=== PATIENT | female | born 1950 | race Asian ===

== ENCOUNTER 2019-11-09 10:34 | Outpatient (CLI) | payer MEDICARE, SELFPAY ==
--- NOTE | ~2019-11-09 | MM_ITS ---
EXAMINATION: MM screening [facility] BI w anny HISTORY: Screening mammogram, family history of breast cancer in her sister. TECHNIQUE: Craniocaudal and mediolateral oblique 3-D tomosynthesis images were obtained and synthetic 2-D images were generated. CAD analysis was submitted and interpreted. COMPARISON: 09/03/2018, 05/20/2017, 04/14/2016, 04/01/2016 BREAST PARENCHYMAL COMPOSITION: There are scattered areas of fibroglandular density. FINDINGS: Again noted are stable bilateral breast masses, considered benign given the lack of interva l change. There is no evidence of suspicious mass, calcification, or architectural distortion to sugg est malignancy in either breast. There has been no suspicious interval change. IMPRESSION: 1. No mammographic evidence of malignancy. 2. Recommend routine screening mammography in one year. BI-RADS Category 2: Benign finding(s). Reviewed, dictated and finalized at location A. NG END TRIMMER
== END 2019-11-09 10:35 | disposition home or self-care (01) ==
LOC: ANHIMG 10:38
PROVIDERS: PCP Family Medicine; Visit Provider Family Medicine
DX: Z12.31 Encounter for screening mammogram for malignant neoplasm of breast (principal)
CPT/HCPCS: 77063; 77067

== ENCOUNTER 2021-03-28 13:59 | Outpatient (CLI) | payer MEDICARE, SELFPAY ==
--- NOTE | ~2021-03-28 | DEXA_ITS ---
Bone Density Report Name: Margi Mason Age: 70 Sex: Female Ethnicity: White Date of : 1950 Indication: postmenopausal; parental hip fracture; height loss; Referring Provider: Ramila Don Study: Bone densitometry was performed. Exam Date: March 28, 2021 Accession number: [id number] Bone Density: Region BMD T-score Z-score Classification AP Spine (L1, L2) 1.160 1.6 3.7 Normal Femoral Neck (Left) 0.802 -0.4 1.5 Normal Total Hip (Left) 1.071 1.1 2.7 Normal Total Hip Bilateral Avg 1.035 0.8 2.4 Normal Femoral Neck (Right) 0.718 -1.2 0.7 Osteopenia Total Hip (Right) 0.998 0.5 2.1 Normal World Health Organization criteria for BMD impression classify patients as: Normal (T-score at or above -1.0), Osteopenia (T-score between -1.0 and -2.5), or Osteoporosis (T-score at or below -2.5). 10-year Fracture Risk(1): Major Osteoporotic Fracture 14% Hip Fracture 3.3% Reported Risk Factors: [place] (), Neck BMD=0.718, BMI=32.2, parental fracture (1) FRAX(R) Version 3.08. Fracture probability calculated for an untreated patient. Fracture probability may be lower if the patient has received treatment. Previous Exams: Region Exam Age BMD T-score BMD Change BMD Change Date g/cm2 vs Baseline vs Previous AP Spine(L1, L2) 03/28/2021 70 1.160 1.6 0.015(1.3%) -0.040(-3.3%)# 02/09/2018 67 1.199 2.0 0.055(4.8%)# 0.055(4.8%)# 12/23/2013 63 1.144 1.5 Total Hip(Left) 03/28/2021 70 1.071 1.1 -0.076(-6.7%)* 0.008(0.7%)# 02/09/2018 67 1.064 1.0 -0.084(-7.3%)# -0.084(-7.3%)# 12/23/2013 63 1.148 1.7 Total Hip(Right) 03/28/2021 70 0.998 0.5 -0.069(-6.5%)* -0.029(-2.8%)# 02/09/2018 67 1.027 0.7 -0.040(-3.8%)# -0.040(-3.8%)# 12/23/2013 63 1.067 1.0 *Denotes significance at 95% confidence level, LSC for AP Spine = 0.022 g/cm2, LSC for Total Hip = 0.027 g/cm2 Clinical Information Provided by Patient: Parent has had a hip fracture Has used the following medications: Vitamin D, Calcium Patient maximum height was 61 Menopause Age: 51 Drinks caffeinated beverages Onset of menses at age 12 Number of children 1 Impression: The patient has low bone mass, based on the Right Femoral Neck T-score. The patient has an estimated ten-year risk of hip fracture of 3.3% and an estimated ten-year risk of major fracture of 14%, based on the WHO FRAX algorithm. The patient has risk factors, including: paren
--- NOTE | ~2021-03-28 | MM_ITS ---
EXAMINATION: MM screening [facility] BI w anny HISTORY: Screening mammogram TECHNIQUE: Craniocaudal and mediolateral oblique 3-D tomosynthesis images were obtained and synthetic 2-D images were generated. CAD analysis was submitted and interpreted. COMPARISON: , 09/03/2018, 05/20/2017 bilateral digital screening mammogram examinations BREAST PARENCHYMAL COMPOSITION: There are scattered areas of fibroglandular density. FINDINGS: Stable circumscribed approximately 9 mm probable intramammary lymph node in the anterior as pect of the upper inner quadrant of the right breast, unchanged since 09/03/2018. Occasional smaller low-density circumscribed opacities are noted on the left. There is no evidence of suspicious mass, c alcification, or architectural distortion to suggest malignancy in either breast. There has been no s uspicious interval change. IMPRESSION: 1. No mammographic evidence of malignancy. 2. Recommend routine screening mammography in one year. BI-RADS Category 2: Benign finding(s). Reviewed, dictated and finalized at location A.
== END 2021-03-28 14:00 | disposition home or self-care (01) ==
LOC: ANHIMG 14:04
PROVIDERS: PCP Family Medicine; Visit Provider Nurse Practitioner Family
DX: Z12.31 Encounter for screening mammogram for malignant neoplasm of breast (principal); Z78.0 Asymptomatic menopausal state; M85.851 Other specified disorders of bone density and structure, right thigh
CPT/HCPCS: 77063; 77067; 77080

== ENCOUNTER 2021-07-03 01:39 | Day surgery (SDC) | payer MEDICARE, SELFPAY ==
[2021-05-30 14:27] VITALS: BMI 32.3
[2021-06-20 13:10] VITALS: BMI 32.3
[2021-07-03 08:43] VITALS: BP 137/64; PULSE 92; RESP 16; TEMP 36.1; O2SAT 98; BMI 33.5
[2021-07-03] MEDS: LACTATED RINGERS 1,000 ML 150 ML IV CONT (08:57)
--- NOTE | 2021-07-03 09:12 | WPDANESEPPF ---
Anes - Initial Pre Proc Eval Procedure: Operation Date: 07/03/21 09:30 Proposed Procedures p Screening Colonoscopy - Cal Mosqueda MD Date/Time: 07/03/21 09:12 Surgeon: Cal Mosqueda MD Pre Op Diagnosis: neoplasm screening Z12.11 Patient Data Age: 71 Gender: F Height: 1.52 m Weight: 78 kg Last Vital Signs Temp 97 F L 07/03/21 08:43 Pulse 92 07/03/21 08:43 Resp 16 07/03/21 08:43 BP 137/64 07/03/21 08:43 Pulse Ox 98 07/03/21 08:43 Allergies Allergy/AdvReac Type Severity Reaction Status Date / Time lactose Allergy Intermediate Diarrhea Verified 07/03/21 08:40 Sulfa (Sulfonamide Allergy Intermediate Rash Verified 07/03/21 08:40 Antibiotics) Home Medications Medication Instructions Recorded Confirmed Type multivitamin 1 tablet PO DAILY 11/17/19 05/30/21 History triamcinolone acetonide 0.025 % 1 applic TOPICAL BID PRN gm 11/17/19 05/30/21 History topical cream calcium carbonate [Calcium 500] 2,500 mg PO DAILY 12/16/19 05/30/21 History telmisartan 80 mg tablet 80 mg PO DAILY #90 tablet 08/07/20 05/30/21 Rx amlodipine 5 mg tablet 5 mg PO DAILY #90 tablet 04/23/21 05/30/21 Rx atorvastatin 20 mg tablet 20 mg PO DAILY #90 tablet 04/23/21 05/30/21 Rx blood pressure monitor #1 ea 04/23/21 04/23/21 Rx fluticasone propionate 50 1 spray NASAL DAILY PRN #54.6 ml 04/23/21 05/30/21 Rx mcg/actuation nasal spray,suspension sodium,potassium,mag sulfates 17.5 See Rx Instructions PO .COMPLEX 05/22/21 05/30/21 Rx gram-3.13 gram-1.6 gram oral soln #354 ml biotin 1,000 mcg PO DAILY 05/30/21 05/30/21 History cholecalciferol (vitamin D3) 25 mcg PO DAILY 05/30/21 05/30/21 History [Vitamin D3] loratadine 10 mg PO DAILY 05/30/21 05/30/21 History diclofenac sodium 50 mg PO DAILY 07/03/21 07/03/21 History Patient hx anesthesia problems: none Family hx anesthesia problems: none Results Review: All pre-operative results and documents have been reviewed as part of the pre-operative evaluation. [facility] Past Medical History Medical History (Updated 04/23/21 @ 13:07 by Ramila Don NP) HLD (hyperlipidemia) Osteoarthritis hands Prediabetes Family History Family History Mother Hypertension Father Family history of diabetes mellitus in first degree relative Sibling Family history of malignant neoplasm of breast in first degree relative Sibling Diabetes mellitus Other Depression Family history of alcoholism Family history of learning disability Family history of mental disorder Social History Social History Smoking status: Never smoker Second hand tobacco smoke exposure: No Alcohol intake: current Drinks per week: 4 Alcohol use details: around twice a month Substance use: never Substance use type: does not use Living arrangements: with family Additional occupation/education comments: [employer]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 Informed Consent: The patient's anesthetic plan and its attendant risks and benefits were discussed with the patient/family/POA. Questions were solicited and answers provided to the satisfaction of the patient/family/POA.
--- NOTE | 2021-07-03 09:13 | WPDGICN ---
Assessment and Plan Assessment and plan (1) Encounter for screening colonoscopy: Code(s): Z12.11 - Encounter for screening for malignant neoplasm of colon Status: Acute Assessment and Plan: Patient presents for screening colonoscopy. Further recommendations will be given after endoscopy. GI Consult Note Consult date/time: 07/03/21 09:13 HPI: Margi Mason is a 71 year old female Presents for screening colonoscopy. Patient reports her current weight appetite bowel movements are normal. She denies abdominal pain. She has had no bleeding. Family history is noncontributory. Patient presents for screening colonoscopy at this time Review of Systems Review of Systems: All systems reviewed & are unremarkable except as noted in HPI and below PMFSH Past Medical History Medical History (Updated 07/03/21 @ 09:14 by Cal Mosqueda MD) HLD (hyperlipidemia) Osteoarthritis hands Prediabetes Family History Family History Mother Hypertension Father Family history of diabetes mellitus in first degree relative Sibling Family history of malignant neoplasm of breast in first degree relative Sibling Diabetes mellitus Other Depression Family history of alcoholism Family history of learning disability Family history of mental disorder Social History Social History Smoking status: Never smoker Second hand tobacco smoke exposure: No Alcohol intake: current Drinks per week: 4 Alcohol use details: around twice a month Substance use: never Substance use type: does not use Living arrangements: with family Additional occupation/education comments: [employer]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 Gender identity (if verbalized by the patient): Female Spiritual care concerns: No Agree to blood products: Yes Meds Home Medications and Allergies Home Medications Medication Instructions Recorded Confirmed Type multivitamin 1 tablet PO DAILY 11/17/19 05/30/21 History triamcinolone acetonide 0.025 % 1 applic TOPICAL BID PRN gm 11/17/19 05/30/21 History topical cream calcium carbonate [Calcium 500] 2,500 mg PO DAILY 12/16/19 05/30/21 History telmisartan 80 mg tablet 80 mg PO DAILY #90 tablet 08/07/20 05/30/21 Rx amlodipine 5 mg tablet 5 mg PO DAILY #90 tablet 04/23/21 05/30/21 Rx atorvastatin 20 mg tablet 20 mg PO DAILY #90 tablet 04/23/21 05/30/21 Rx blood pressure monitor #1 ea 04/23/21 04/23/21 Rx fluticasone propionate 50 1 spray NASAL DAILY PRN #54.6 ml 04/23/21 05/30/21 Rx mcg/actuation nasal spray,suspension sodium,potassium,mag sulfates 17.5 See Rx Instructions PO .COMPLEX 05/22/21 05/30/21 Rx gram-3.13 gram-1.6 gram oral soln #354 ml biotin 1,000 mcg PO DAILY 05/30/21 05/30/21 History cholecalciferol (vitamin D3) 25 mcg PO DAILY 05/30/21 05/30/21 History [Vitamin D3] loratadine 10 mg PO DAILY 05/30/21 05/30/21 History diclofenac sodium 50 mg PO DAILY 07/03/21 07/03/21 History Allergies Allergy/AdvReac Type Severity Reaction Status Date / Time lactose Allergy Intermediate Diarrhea Verified 07/03/21 08:40 Sulfa (Sulfonamide Allergy Intermediate Rash Verified 07/03/21 08:40 Antibiotics) Vital Signs Vital Signs - 24 hr 07/03/21 08:43 Temperature 97 F L Pulse Rate 92 Respiratory Rate 16 Blood Pressure 137/64 Pulse Oximetry 98 Exam Narrative: physical exam reveals patient be alert. Vital signs stable. HEENT exam is unremarkable. Patient is anicteric. Lungs are clear to auscultation and percussion. Heart is without murmur or extra sounds. Abdominal exam bowel sounds are present soft nontender with no organomegaly. Digital external rectal exam is normal.
[2021-07-03 09:37] VITALS: BP 96/50; PULSE 76; RESP 20; O2SAT 96
[2021-07-03 09:47] VITALS: BP 107/66; PULSE 79; RESP 18; O2SAT 96
[2021-07-03 09:57] VITALS: BP 120/82; PULSE 74; RESP 16; O2SAT 97
== END 2021-07-03 10:11 | disposition home or self-care (01) ==
PROVIDERS: PCP Family Medicine; Visit Provider Internal Medicine Gastroenterology
PROC: 0DJD8ZZ Inspection of Lower Intestinal Tract, Via Natural or Artificial Opening Endoscopic (ICD-10-PCS; CPT 45378; principal; 2021-07-03 09:30)
DX: Z12.11 Encounter for screening for malignant neoplasm of colon (principal); K64.8 Other hemorrhoids; K57.30 Diverticulosis of large intestine without perforation or abscess without bleeding; E78.5 Hyperlipidemia, unspecified; R73.03 Prediabetes; E66.9 Obesity, unspecified; Z68.33 Body mass index [BMI] 33.0-33.9, adult
CPT/HCPCS: G0121; J2704; J7120

== ENCOUNTER → 2021-08-08 12:06 | Outpatient (CLI) | payer MEDICARE, SELFPAY ==
--- NOTE | ~2021-08-08 | XR_ITS ---
EXAMINATION: XR knee LT 2V EXAM DATE: 08/08/2021 12:17 INDICATION: M25.569 - Pain in unspecified knee; pain med Lt knee x 1 mo. TECHNIQUE: Frontal and lateral projections of the left knee. There is no prior study for comparison . FINDINGS: There is moderate left knee tricompartmental primary osteoarthritis. There is small joint effusion. There are faint meniscal calcifications, chondrocalcinosis. Chondrocalcinosis can be an age related finding, but with other possible etiologies including CPPD, parathyroid disorders, hemochrom atosis, gout. There are no acute fractures or dislocations identified. There is no subcutaneous gas. There are no radiopaque foreign bodies. IMPRESSION: Moderate left knee osteoarthritis. Chondrocalcinosis. Reviewed, dictated and finalized at location A.
== END ==
PROVIDERS: PCP Nurse Practitioner Family; Visit Provider Nurse Practitioner Family
DX: M25.462 Effusion, left knee (principal); M17.12 Unilateral primary osteoarthritis, left knee; M11.262 Other chondrocalcinosis, left knee
CPT/HCPCS: 73560

== ENCOUNTER → 2021-10-31 15:20 | Outpatient (CLI) | payer MEDICARE, SELFPAY ==
--- NOTE | ~2021-10-31 | XR_ITS ---
XR knee RT 3V 10/31/2021 15:54 Indication: 3 views right knee Procedure: No prior studies for comparison. Comparison: No prior studies for comparison. Findings: There is moderate hiatal severe osteoarthritis of the right knee, most advanced at the mendoza llofemoral compartment. No fracture, subluxation or dislocation. No significant joint effusion. Impression: 1: Moderate-severe osteoarthritis of the right knee. Reviewed, dictated and finalized at location B. AIN DRIER Impression: 1: Moderate-severe osteoarthritis of the right knee.
--- NOTE | ~2021-10-31 | XR_ITS ---
XR foot RT min 3V DATE: 10/31/2021 15:55 INDICATION: Bilateral foot pain. Acute rheumatoid arthritis. TECHNIQUE: Standing three-view examination COMPARISON: None FINDINGS: Mild plantar calcaneal enthesopathy without erosive change or periostitis. Hallux valgus and bunion deformity. There is moderate osteoarthritis at the first metatarsophalangeal joint with prominent dorsal spur of the first metatarsal head. There is osteoarthritic change at the second through fifth tarsometatarsal joints. No erosions are noted. IMPRESSION: Mild plantar calcaneal enthesopathy Hallux valgus and bunion deformity Osteoarthritic changes at the first metatarsophalangeal joint and second through fifth tarsometatarsa l joints Reviewed, dictated and finalized at location A. MOLDER IMPRESSION: Mild plantar calcaneal enthesopathy Hallux valgus and bunion deformity Osteoarthritic changes at the first metatarsophalangeal joint and second throug h fifth tarsometatarsal joints
--- NOTE | ~2021-10-31 | XR_ITS ---
XR knee LT 3V 10/31/2021 15:54 Indication: Left knee pain Procedure: 3 views left knee Comparison: 08/08/2021 Findings: Moderate osteoarthritis of the left knee. No fracture, subluxation or dislocation. No signi ficant joint effusion. No significant soft tissue abnormality. No foreign bodies. Impression: 1: Moderate tricompartment osteoarthritis of the left knee. Reviewed, dictated and finalized at location B. ICE COURT JUDGE Impression: 1: Moderate tricompartment osteoarthritis of the left knee.
--- NOTE | ~2021-10-31 | XR_ITS ---
XR foot LT min 3V DATE: 10/31/2021 15:55 INDICATION: Left foot pain. Acute rheumatoid arthritis. TECHNIQUE: Standing AP, lateral and oblique views COMPARISON: None FINDINGS: Prominent plantar calcaneal enthesopathy. There is severe joint space narrowing, prominent spurring and mild lateral subluxation at the first m etatarsophalangeal joint. Hallux valgus and bunion deformity. No fracture, dislocation, periosteal reaction or bone destruction. IMPRESSION: Prominent plantar calcaneal enthesopathy Hallux valgus and bunion deformity Severe osteoarthritis and mild lateral subluxation at the first metatarsophalangeal joint Reviewed, dictated and finalized at location A. ELING INVENTORY ASSOCIATE IMPRESSION: Prominent plantar calcaneal enthesopathy Hallux valgus and bunion deformity Severe osteoarthritis and mild lateral subluxation at the first metatarsophalan geal joint
--- NOTE | ~2021-10-31 | XR_ITS ---
XR hip BI 2V w AP pelvis DATE: 10/31/2021 15:54 INDICATION: Pain. Acute rheumatoid arthritis. TECHNIQUE: AP pelvis. AP and lateral views of each hip. COMPARISON: None FINDINGS: There is dextroscoliosis and multilevel degenerative disc disease of the lumbar spine. The pubic symphysis and sacroiliac joints are intact. Hip joint spaces are symmetric and relatively preserved. Mild osteophytic spurring of the right hip. No pelvic fracture or bone destruction. No fracture or dislocation, avascular necrosis or bone destru ction of either hip is detected. IMPRESSION: DEXA scoliosis and multilevel degenerative disc disease of the lumbar spine Mild right hip osteoarthritis Reviewed, dictated and finalized at location A. SOFTWARE TESTER IMPRESSION: DEXA scoliosis and multilevel degenerative disc disease of the lumb ar spine Mild right hip osteoarthritis
== END ==
PROVIDERS: PCP Nurse Practitioner Family; Visit Provider Internal Medicine
DX: M06.872 Other specified rheumatoid arthritis, left ankle and foot (principal); M20.12 Hallux valgus (acquired), left foot; M20.11 Hallux valgus (acquired), right foot; M41.9 Scoliosis, unspecified; M16.11 Unilateral primary osteoarthritis, right hip; M47.816 Spondylosis without myelopathy or radiculopathy, lumbar region; M45.6 Ankylosing spondylitis lumbar region; M06.871 Other specified rheumatoid arthritis, right ankle and foot
CPT/HCPCS: 73521; 73562; 73630

== ENCOUNTER 2022-11-11 10:06 | Outpatient (CLI) | payer MEDICARE, SELFPAY ==
--- NOTE | ~2022-11-11 | MM_ITS ---
EXAMINATION: MM screening [facility] BI w anny HISTORY: Screening mammogram TECHNIQUE: Craniocaudal and mediolateral oblique 3-D tomosynthesis images were obtained and synthetic 2-D images were generated. CAD analysis was submitted and interpreted. COMPARISON: 03/24/2021, 11/09/2019, 09/03/2018 bilateral screening mammogram examinations BREAST PARENCHYMAL COMPOSITION: There are scattered areas of fibroglandular density. FINDINGS: There is no evidence of suspicious mass, calcification, or architectural distortion to sugg est malignancy in either breast. There has been no suspicious interval change. IMPRESSION: 1. No mammographic evidence of malignancy. 2. Recommend routine screening mammography in one year. BI-RADS Category 1: Negative Reviewed, dictated and finalized at location A. Y LEVEL ACCOUNTANT
== END 2022-11-11 10:07 | disposition home or self-care (01) ==
PROVIDERS: PCP Nurse Practitioner Family; Visit Provider Nurse Practitioner Family
DX: Z12.31 Encounter for screening mammogram for malignant neoplasm of breast (principal)
CPT/HCPCS: 77063; 77067

== ENCOUNTER → 2023-02-13 12:17 | Outpatient (CLI) | payer MEDICARE, SELFPAY ==
--- NOTE | ~2023-02-13 | XR_ITS ---
Bilateral Hands Technique: Bilateral PA, oblique, and lateral views, and ball-catcher's view were obtained. Clinical History: Osteoarthritis Findings: No acute fracture or dislocation is seen. There is severe degenerative change at the bilate ral first CMC joints. There is mild to moderate degenerative change at the DIP joints bilaterally, wo rst at the left fourth DIP joint. There are minimal scattered degenerative changes at the PIP joints bilaterally. Soft tissues are unremarkable. Impression: Scattered degenerative changes bilaterally, as detailed above, worst at the bilateral first CMC joint s. There are additional degenerative changes at the proximal and distal interphalangeal joints bilate rally. Reviewed, dictated and finalized at location M. Impression: Scattered degenerative changes bilaterally, as detailed above, worst at the kishor ateral first CMC joints. There are additional degenerative changes at the proxi mal and distal interphalangeal joints bilaterally.
== END ==
PROVIDERS: PCP Nurse Practitioner Family; Visit Provider Nurse Practitioner Family
DX: M19.042 Primary osteoarthritis, left hand (principal); M19.041 Primary osteoarthritis, right hand
CPT/HCPCS: 73130

== ENCOUNTER 2023-12-14 13:59 | Outpatient (CLI) | payer MEDICARE, SELFPAY ==
--- NOTE | ~2023-12-14 | MM_ITS ---
EXAMINATION: MM screening [facility] BI w anny HISTORY: Screening mammogram TECHNIQUE: Craniocaudal and mediolateral oblique 3-D tomosynthesis images were obtained and synthetic 2-D images were generated. CAD analysis was submitted and interpreted. COMPARISON: November 11, 2022, March 28, 2021 bilateral screening mammogram examinations BREAST PARENCHYMAL COMPOSITION: There are scattered areas of fibroglandular density. FINDINGS: There is no evidence of suspicious mass, calcification, or architectural distortion to sugg est malignancy in either breast. There has been no suspicious interval change. IMPRESSION: 1. No mammographic evidence of malignancy. 2. Recommend routine screening mammography in one year. BI-RADS Category 1: Negative Reviewed, dictated and finalized at location A.
== END 2023-12-14 14:00 ==
LOC: MICIMG 14:00
PROVIDERS: PCP Nurse Practitioner Family; Visit Provider Nurse Practitioner Family
DX: Z12.31 Encounter for screening mammogram for malignant neoplasm of breast (principal)
CPT/HCPCS: 77063; 77067

== ENCOUNTER 2025-05-19 15:41 | Outpatient (CLI) | payer MEDICARE, SELFPAY ==
--- NOTE | ~2025-05-19 | MM_ITS ---
EXAMINATION: MM screening [facility] BI w anny HISTORY: Screening mammogram, family history of breast cancer in her sister. TECHNIQUE: Craniocaudal and mediolateral oblique 3-D tomosynthesis images were obtained and synthetic 2-D images were generated. CAD analysis was submitted and interpreted. COMPARISON: 12/14/2023, 11/11/2022, 03/28/2021 BREAST PARENCHYMAL COMPOSITION:Not Dense. The breasts are almost entirely fatty FINDINGS: Stable subareolar right breast mass. No suspicious mass, calcification, or architectural di stortion are identified in either breast to suggest malignancy. There has been no suspicious interval change. IMPRESSION: No mammographic evidence of malignancy. Recommend routine screening mammography in one year. BI-RADS Category 2: Benign finding(s). Reviewed, dictated and finalized at [facility].
== END 2025-05-19 15:42 | disposition home or self-care (01) ==
LOC: ANHIMG 15:43
PROVIDERS: PCP Nurse Practitioner Family; Visit Provider Nurse Practitioner Family
DX: Z12.31 Encounter for screening mammogram for malignant neoplasm of breast (principal)
CPT/HCPCS: 77063; 77067